=== PATIENT | female | born 1940 | race Caucasian/White ===

== ENCOUNTER 2024-11-05 17:00 | Inpatient (IN) | payer MEDICARE, OTHER ==
[~2024-11-05] VITALS: Ht 154.9 cm; Wt 56.7 kg
[2024-11-05] MEDS ORDERED: ONDANSETRON HCL/PF 4 MG/2 ML VIAL ONE (18:03)
[2024-11-05] MEDS ORDERED: PANTOPRAZOLE 40 MG VIAL ONE (18:03)
[2024-11-05] MEDS: IV NS 0.9% 500 ML BAG IV ONE (18:10)
[2024-11-05] MEDS: ONDANSETRON HCL/PF 4 MG/2 ML VIAL IVP ONE (18:11)
[2024-11-05 18:13] LABS: BASOPHILS % (AUTO) 0.4 % (0.0-2.0); EOSINOPHILS % (AUTO) 0.1 % (0.0-6.0); HEMATOCRIT 35 % (33-45); HEMOGLOBIN 11.5 g/dL (11.5-14.8); LYMPHOCYTES # (AUTO) 1.7 K/uL (0.8-4.8); MEAN CORPUSCULAR HEMOGLOBIN 30 PG (26.0-33.0); MEAN CORPUSCULAR HGB CONC 33 g/dl (31.0-36.0); MEAN CORPUSCULAR VOLUME 90 fL (82-100); MONOCYTES # (AUTO) 0.6 K/uL (0.1-1.30); MONOCYTES % (AUTO) 5.9 % (2.0-12.0); NEUTROPHILS # (AUTO) 8.4 K/uL (1.8-8.9); NEUTROPHILS % (AUTO) 77.6 % (43.0-81.0); PLATELET COUNT (AUTO) 184 K/uL (150-450); RED BLOOD CELL COUNT(AUTO) 3.88 MIL/uL (4.0-5.2); RED CELL DISTRIBUTION WIDTH 14.2 % (11.5-15.0); WHITE BLOOD COUNT (AUTO) 10.8 K/uL (4.3-11.0)
[2024-11-05] MEDS: PANTOPRAZOLE 40 MG VIAL IV ONE (18:13)
[2024-11-05 18:46] LABS: CALCIUM, SERUM 10.7 mg/dL (8.5-10.1); CREATININE 1.5 mg/dL (0.6-1.3); POTASSIUM 3.8 mmol/L (3.5-5.1)
[2024-11-05 18:50] LABS: INR 1.11 (0.91-1.10); PARTIAL THROMBOPLASTIN TIME 26.9 SEC (24.3-34.3); PROTHROMBIN TIME 11.7 SECS (9.2-11.1)
[2024-11-05 18:53] LABS: ALBUMIN 3.8 g/dL (3.4-5.0); BILIRUBIN,DIRECT 0.2 mg/dL (0.0-0.2); BILIRUBIN,TOTAL 0.5 mg/dL (0.2-1.0); TOTAL PROTEIN, SERUM 8.4 g/dL (6.4-8.2)
[2024-11-05] MEDS: IV NS 0.9% 1,000 ML BAG IV ONE (19:30)
[2024-11-05 21:15] VITALS: BP 148/72; TEMP 98.1; O2SAT 95
[2024-11-05] MEDS: ENOXAPARIN SODIUM 40 MG/0.4 ML DISP.SYRIN SQ SCH (23:26)
[2024-11-05] MEDS: IV NS 0.9% 1,000 ML IV PRN (23:33)
[2024-11-05] MEDS: ONDANSETRON HCL/PF 4 MG/2 ML VIAL IVP PRN (23:47)
[2024-11-06 06:40] LABS: BASOPHILS % (AUTO) 0.3 % (0.0-2.0); EOSINOPHILS % (AUTO) 0.2 % (0.0-6.0); HEMATOCRIT 33 % (33-45); HEMOGLOBIN 10.8 g/dL (11.5-14.8); LYMPHOCYTES # (AUTO) 2.2 K/uL (0.8-4.8); LYMPHOCYTES % (AUTO) 26.1 % (20.0-44.0); MEAN CORPUSCULAR HEMOGLOBIN 30 PG (26.0-33.0); MEAN CORPUSCULAR HGB CONC 33 g/dl (31.0-36.0); MEAN CORPUSCULAR VOLUME 91 fL (82-100); MONOCYTES # (AUTO) 0.8 K/uL (0.1-1.30); MONOCYTES % (AUTO) 9.5 % (2.0-12.0); NEUTROPHILS # (AUTO) 5.5 K/uL (1.8-8.9); NEUTROPHILS % (AUTO) 63.9 % (43.0-81.0); PLATELET COUNT (AUTO) 162 K/uL (150-450); RED BLOOD CELL COUNT(AUTO) 3.66 MIL/uL (4.0-5.2); RED CELL DISTRIBUTION WIDTH 14.2 % (11.5-15.0); WHITE BLOOD COUNT (AUTO) 8.6 K/uL (4.3-11.0)
[2024-11-06 06:48] LABS: APPEARANCE,URINE TURBID (CLEAR); BILIRUBIN,URINE 1+ (NEGATIVE); BLOOD, URINE 1+ Ery/uL (NEGATIVE); COLOR,URINE YELLOW (YELLOW); KETONES,URINE TRACE mg/dL (NEGATIVE); LEUKOCYTE ESTERASE ,URINE 1+ (NEGATIVE); NITRITE, URINE POSITIVE (NEGATIVE); PH,URINE 5.5 (5.0-8.0); PROTEIN,URINE 1+ mg/dl (NEGATIVE); UGLUCOSE NEGATIVE (NEGATIVE); UROBILINOGEN,URINE 0.2 EU/dL (0.2)
[2024-11-06 06:49] LABS: CALCIUM, SERUM 9.6 mg/dL (8.5-10.1); CREATININE 1.4 mg/dL (0.6-1.3); MAGNESIUM 1.9 mg/dL (1.8-2.4); PHOSPHORUS 3.9 mg/dL (2.5-4.9); POTASSIUM 3.2 mmol/L (3.5-5.1)
[2024-11-06 07:18] LABS: BACTERIA,URINE Few /HPF (None Seen); URINE AMORPHOUS URATE Many /HPF (None Seen)
[2024-11-06 07:19] LABS: ADD URINE CULTURE YES; RBC,URINE 0-2 /HPF (0-2); SQUAMOUS EPITHELIAL CELL,UR Few /HPF (None Seen); WBC,URINE 0-2 /HPF (0-3)
[2024-11-06 08:00] VITALS: BP 158/62; TEMP 97.5; O2SAT 95
[2024-11-06] MEDS: POTASSIUM CL. PREMIX PERIPHER. 50 ML IV SCH (11:54)
[2024-11-06] MEDS: IV D5/0.45 NACL 1,000 ML IV PRN (11:57)
[2024-11-06] MEDS ORDERED: MAGN400T52 PO (12:27)
[2024-11-06] MEDS ORDERED: ZOLP5TAB8 PO (12:27)
[2024-11-06] MEDS ORDERED: ASPI-1420 PO (12:27)
[2024-11-06] MEDS ORDERED: MEMA10TA PO (12:27)
[2024-11-06] MEDS ORDERED: ROSU20TA2 PO (12:27)
[2024-11-06] MEDS ORDERED: UMEC1BLS IH (12:27)
[2024-11-06] MEDS ORDERED: METF-442 PO (12:27)
[2024-11-06] MEDS ORDERED: LEVO50TA8 PO (12:27)
[2024-11-06] MEDS ORDERED: ESCI10TA PO (12:27)
[2024-11-06] MEDS ORDERED: AMLO-212 PO (12:27)
[2024-11-06] MEDS ORDERED: CHOL500062 PO (12:27)
[2024-11-06] MEDS ORDERED: ESOM40CA PO (12:27)
[2024-11-06] MEDS ORDERED: QUET25TA PO (12:27)
[2024-11-06] MEDS ORDERED: IRBE1TAB43 PO (12:27)
[2024-11-06] MEDS: CEFTRIAXONE 1 G in IV D5W 50 ML IV SCH (13:06)
[2024-11-06 20:00] VITALS: BP 144/62; TEMP 97.7; O2SAT 92
[2024-11-06 21:07] VITALS: BP 144/62; TEMP 97.7; O2SAT 92
[2024-11-07] MEDS ORDERED: DEXTROSE 50%-WATER 50 ML DISP.SYRIN IV PRN (00:30)
[2024-11-07] MEDS ORDERED: INSULIN REGULAR, HUMAN 100 UNIT/ML 3 ML VIAL SQ PRN (00:30)
[2024-11-07] MEDS: BLOOD SUGAR DIAGNOSTIC 1 EACH STRIP IN SCH (05:42)
[2024-11-07 06:38] LABS: BASOPHILS % (AUTO) 0.2 % (0.0-2.0); EOSINOPHILS % (AUTO) 0.1 % (0.0-6.0); HEMATOCRIT 32 % (33-45); HEMOGLOBIN 10.3 g/dL (11.5-14.8); LYMPHOCYTES # (AUTO) 1.4 K/uL (0.8-4.8); LYMPHOCYTES % (AUTO) 12.2 % (20.0-44.0); MEAN CORPUSCULAR HEMOGLOBIN 29 PG (26.0-33.0); MEAN CORPUSCULAR HGB CONC 32 g/dl (31.0-36.0); MEAN CORPUSCULAR VOLUME 90 fL (82-100); MONOCYTES # (AUTO) 0.7 K/uL (0.1-1.30); MONOCYTES % (AUTO) 6.3 % (2.0-12.0); NEUTROPHILS # (AUTO) 9.6 K/uL (1.8-8.9); NEUTROPHILS % (AUTO) 81.2 % (43.0-81.0); PLATELET COUNT (AUTO) 137 K/uL (150-450); RED BLOOD CELL COUNT(AUTO) 3.56 MIL/uL (4.0-5.2); RED CELL DISTRIBUTION WIDTH 14.3 % (11.5-15.0); WHITE BLOOD COUNT (AUTO) 11.8 K/uL (4.3-11.0)
[2024-11-07 07:12] LABS: ALBUMIN 2.6 g/dL (3.4-5.0); BILIRUBIN,TOTAL 0.3 mg/dL (0.2-1.0); CALCIUM, SERUM 9.3 mg/dL (8.5-10.1); CREATININE 1.3 mg/dL (0.6-1.3); MAGNESIUM 1.9 mg/dL (1.8-2.4); PHOSPHORUS 3.4 mg/dL (2.5-4.9); POTASSIUM 3.4 mmol/L (3.5-5.1); TOTAL PROTEIN, SERUM 6.4 g/dL (6.4-8.2)
[2024-11-07 08:00] VITALS: BP 140/58; TEMP 98.1; O2SAT 95
[2024-11-07] MEDS: POTASSIUM CL. PREMIX PERIPHER. 50 ML IV SCH (10:37)
[2024-11-07] MEDS ORDERED: ANORO ELLIPTA XX SCH (13:00)
[2024-11-07] MEDS: ASPIRIN EC 81 MG TABLET.DR PO SCH (13:28)
[2024-11-07] MEDS: AMLODIPINE BESYLATE 5 MG TABLET PO SCH (13:28)
[2024-11-07] MEDS: QUETIAPINE FUMARATE 25 MG TABLET PO SCH (13:28)
[2024-11-07] MEDS: LEVOTHYROXINE SODIUM 50 MCG TABLET PO SCH (13:28)
[2024-11-07] MEDS: ESCITALOPRAM OXALATE (10 MG) 10 MG TABLET PO SCH (13:29)
[2024-11-07] MEDS: MEMANTINE HCL 5 MG TABLET PO SCH (13:29)
[2024-11-07 16:00] VITALS: BP 166/57; TEMP 97.9; O2SAT 96
[2024-11-07 20:00] VITALS: BP 147/94; TEMP 97.3; O2SAT 94
[2024-11-07] MEDS: ZOLPIDEM TARTRATE 5 MG TABLET PO SCH (21:21)
[2024-11-07] MEDS: ATORVASTATIN 40 MG TABLET PO SCH (21:21)
[2024-11-08] MEDS: MAG HYDROX/AL HYDROX/SIMETH 30 ML UDC PO PRN (01:19)
[2024-11-08] MEDS: ACETAMINOPHEN 325 MG TABLET PO PRN (03:24)
[2024-11-08 07:44] LABS: CALCIUM, SERUM 8.9 mg/dL (8.5-10.1); CREATININE 1.2 mg/dL (0.6-1.3); POTASSIUM 3.1 mmol/L (3.5-5.1)
[2024-11-08 08:00] VITALS: BP 166/72; TEMP 97.9; O2SAT 100
[2024-11-08 08:10] LABS: PTH, INTACT 19 pg/mL (15-65)
[2024-11-08] MEDS: CHOLECALCIFEROL 1,000 UNIT TABLET (VIT D3) PO SCH (08:55)
[2024-11-08] MEDS: MAGNESIUM OXIDE 400 MG TABLET PO SCH (08:55)
[2024-11-08] MEDS: POTASSIUM CHLORIDE 20 MEQ TAB.PRT.SR PO SCH (11:02)
[2024-11-08] MEDS ORDERED: CEFD300C3 PO (11:10)
[2024-11-08 16:00] VITALS: BP 171/63; TEMP 98.1; O2SAT 100
[2024-11-09 06:10] LABS: *SPE ALBUMIN 2.9 g/dL (2.9-4.4); *SPE ALPHA-1-GLOBULIN 0.2 g/dL (0.0-0.4); *SPE ALPHA-2-GLOBULIN 0.9 g/dL (0.4-1.0); *SPE BETA GLOBULIN 0.7 g/dL (0.7-1.3); *SPE GLOBULIN, TOTAL 2.8 g/dL (2.2-3.9); *SPE M-SPIKE Not Observed g/dL (Not Observed); *SPE PROTEIN TOTAL 5.7 g/dL (6.0-8.5)
== END 2024-11-08 18:00 | disposition home health service (06) | DRG 640 ==
LOC: ER 17:05 → TELE 20:58 → MED 22:57
PROVIDERS: ADMIT Nurse Practitioner Acute Care; ATTEND Nurse Practitioner Acute Care
DX: E86.0 Dehydration (principal); N17.0 Acute kidney failure with tubular necrosis; N13.6 Pyonephrosis; G93.40 Encephalopathy, unspecified; E87.0 Hyperosmolality and hypernatremia; E87.6 Hypokalemia; N18.9 Chronic kidney disease, unspecified; D63.8 Anemia in other chronic diseases classified elsewhere; G30.9 Alzheimer's disease, unspecified; F02.80 Dementia in other diseases classified elsewhere, unspecified severity, without behavioral disturbance, psychotic disturbance, mood disturbance, and anxiety; M89.8X9 Other specified disorders of bone, unspecified site; Z20.822 Contact with and (suspected) exposure to COVID-19; E11.22 Type 2 diabetes mellitus with diabetic chronic kidney disease; B96.89 Other specified bacterial agents as the cause of diseases classified elsewhere; Z79.84 Long term (current) use of oral hypoglycemic drugs; R93.89 Abnormal findings on diagnostic imaging of other specified body structures
CPT/HCPCS: 36415; 71045-TC; 76770-TC; 80048-TC; 80053-TC; 80076-TC; 81001; 82550-TC; 82962-TC; 83605-TC; 83690-TC; 83735-TC; 83970; 84100-TC; 84155; 84165; 84484-TC; 85025-TC; 85730-TC; 87040-TC; 87086-TC; 97110-TC; 97116-TC; 97530-TC; A4223; G0378; J0696; J1650; J1815; J2405; J2470; J3480; J3490; J7030; J7040; J7050; J7060